=== PATIENT | male | born 1995 | race Two or more races ===

== ENCOUNTER 2016-10-21 21:13 | Emergency (ER) | payer SELFPAY ==
[~2016-10-21] VITALS: Ht 167.6 cm; Wt 88.1 kg
[2016-10-21 21:21] VITALS: BP 136/65
[2016-10-21] MEDS ORDERED: METHOCARBAMOL 750 MG TABLET ONE (21:55)
[2016-10-21] MEDS ORDERED: METHOCARBAMOL 750 MG TABLET PO ONE (22:00)
== END 2016-10-21 22:55 | disposition home or self-care (01) ==
LOC: ED 22:49
DX: S16.1XXA Strain of muscle, fascia and tendon at neck level, initial encounter (principal); X58.XXXA Exposure to other specified factors, initial encounter; Y93.89 Activity, other specified; Y99.8 Other external cause status; Y92.89 Other specified places as the place of occurrence of the external cause
CPT/HCPCS: 72050; 99284